=== PATIENT | female | born 1975 | race Caucasian/White ===

== ENCOUNTER 2017-09-06 06:31 | Emergency (ER) | payer OTHER ==
[2017-09-06] MEDS: 0.9 % SODIUM CHLORIDE 1,000 ML IV ONE ×2 (07:00→07:27)
[2017-09-06] MEDS: KETOROLAC TROMETHAMINE 30 MG/1ML VIAL ONE (07:00)
[2017-09-06] MEDS: ONDANSETRON HCL/PF 4 MG/ 2ML VIAL ONE (07:00)
[2017-09-06] MEDS: KETOROLAC TROMETHAMINE 30 MG/1ML VIAL IVP ONE (07:27)
[2017-09-06] MEDS: fentaNYL CITRATE/PF 100 MCG/ 2ML AMP IVP ONE ×2 (07:35→09:25)
[2017-09-06] MEDS: TAMSULOSIN HCL 0.4 MG CAP.ER.24H PO ONE ×2 (07:35→07:46)
[2017-09-06] MEDS: fentaNYL CITRATE/PF 100 MCG/ 2ML AMP ONE (07:46)
--- NOTE | 2017-09-06 08:07 | ED Physician Documentation ---
Female Urogenital Problems - HISTORIAN Historian: patient - HPI Stated Complaint: POSS KIDNEY STONE Chief Complaint: Female Urogenital Problems Onset: other (329) Severity: severe Further Comments: yes (42 year old female patient presents with complaint of right flank which started around 0330. Patient reports having dull back ache yesterday, around 0330 pain became sharp and much worse. Patient reports history of renal calculi when she lived in [place]. Has never been seen by urology.) - ROS CONST: none GI/: nausea. denies: vomiting, diarrhea CVS/RESP: none EYES/ENT: none NEURO/PSYCH: none MS/SKIN/LYMPH: none - PAST HX Past History: none Other History: other (renal calculi - passed) Allergies/Adverse Reactions: Allergies Allergy/AdvReac Type Severity Reaction Status Date / Time No Known Allergies Allergy Verified 09/06/17 07:03 Home Medications: Ambulatory Orders Medication Instructions Recorded NK [NK] 09/06/17 - SOCIAL HX Smoking History: cigarettes - FAMILY HX Family History: denies: none - VITAL SIGNS Vital Signs: Vital Signs Temp Pulse Resp BP Pulse Ox 98.1 F 85 20 156/80 99 09/06/17 06:31 09/06/17 06:31 09/06/17 06:31 09/06/17 06:31 09/06/17 06:31 - REVIEWED ASSESSMENTS Nursing Assessment Reviewed: Yes Vitals Reviewed: Yes Progress - Progress Progress: Patient with continued pain after toradol and fluid. Flomax given in ER. Reviewed CT results with patient, discussed urology consult. Patient states "you pick". 0815 Call to [facility] for urology consult and follow up care. Dr Rogers consulted 0900 Case discussed with Nagi house cleaner, consulted with Dr Rogers, will see patient in his office at 3:30 today. Reviewed discharge instructions with patient, agrees with plan of care, reports pain is increasing. Additional fentanyl given ED Results Lab/Radiology - Radiology Radiology Impressions: HISTORY: 42-year-old female with right abdominal pain, history of kidney stones. COMPARISON: None available. TECHNIQUE: Helical CT images of the abdomen and pelvis were performed without contrast. Sagittal and coronal reformatted images were obtained. FINDINGS: Urinary tract: There are numerous bilateral nonobstructing renal calculi. There is moderate to severe right hydronephrosis and hydroureter secondary to a 7 mm right distal ureteral calculus (image 318, series 2). No left ureteral calculi, hydronephrosis, or hydroureter. No urinary bladder calculi. Miscellaneous: There is patchy air trapping in the lung bases. There is a small sliding hiatal hernia. The noncontrast liver, spleen, pancreas, gallbladder, adrenal glands are unremarkable. No abnormal bowel dilatation, free air, free fluid, or suspicious adenopathy. The appendix is not visualized , and is likely surgically absent. There is an old post-traumatic deformity of the left iliac bone laterally. There is advanced lower lumbar degenerative disc disease. There are thoracolumbar and lumbosacral transitional vertebrae. IMPRESSION: 1. Right distal ureteral 7 mm calculus with associated moderate to severe right hydronephrosis and hydroureter. 2. Numerous bilateral renal nonobstructing calculi. 3. Patchy air trapping in the lung bases may indicate small airways disease or early emphysema. 4. Small sliding hiatal hernia. - Orders Orders: ED Orders Category Date Time Status Place IV Lock 1T Care 09/06/17 06:40 Active RENAL STONE PROTOCOL [CT ABD & PELVIS W/O CON] Stat Exams 09/06/17 Taken 0.9 % Sodium Chloride [Normal Saline] 1,000 ml Med 09/06/17 06:43 Discontinued IV .STK-MED 0.9 % Sodium Chloride [Normal Saline] 1,000 ml Med 09/06/17 06:45 Discontinued IV Q1H Ketorolac Tromethamine [Toradol] Med 09/06/17 06:43 Discontinued 30 mg .ROUTE .STK-MED ONE Ketorolac Tromethamine [Toradol] Med 09/06/17 06:45 Discontinued 30 mg IVP NOW ONE Ondansetron HCl/Pf [Zofran 4 mg/2 ml] Med 09/06/17 06:47 Discontinued 4 mg .ROUTE .STK-MED ONE Tamsulosin HCl [Flomax] Med 09/06/17 07:31 Discontinued 0.4 mg PO .STK-MED ONE Tamsulosin HCl [Flomax] Med 09/06/17 07:29 Discontinued 0.4 mg PO NOW ONE fentaNYL CITRATE/PF [Duragesic] Med 09/06/17 07:31 Discontinued 100 mcg .ROUTE .STK-MED ONE fentaNYL CITRATE/PF [Duragesic] Med 09/06/17 07:30 Discontinued 50 mcg IVP NOW ONE Female Urogenital Problems - EXAM General Appearance: moderate distress EENT: eye inspection normal, DANIEL Respiratory: no resp. distress, breath sounds nml CVS: reg rate & rhythm, heart sounds normal, equal pulses, no murmur, no gallop , PMI nml, no JVD, no friction rub, 24 Abdomen: soft, non-tender, no organomegaly, no distention, nml bowel sounds Back: CVA tenderness (right) Skin: color nml, no rash, warm,dry Extremities: non-tender, normal range of motion, no evidence of injury, no edema , J, CHIEF DEPUTY CLERK/BAILIFF Neuro: oriented X3, CN's nml as tested, motor nml, sensation nml, mood/affect nml Discharge Clincal Impression: Renal calculus Referrals: Natacha Gross PRN [Primary Care Provider] - 2 Days Additional Instructions: Appointment today at [facility] [address] Rogers 3:30pm [address] [place] [address] Toll Free: [phone] Rest Hydrate - no caffeine beverages Condition: Stable Disposition: 01 HOME, SELF-CARE Decision to Admit: NO Decision Time: 09:19
[2017-09-06 09:27] LABS: APPEARANCE,URINE CLOUDY (CLEAR); COLOR,URINE AMBER (YELLOW)
[2017-09-06 09:28] LABS: OCCULT BLOOD,URINE 3+ (NEGATIVE); PH URINE 6.5 (5.0 - 8.0); UROBILINOGEN URINE 0.2 Eu (0.2-1.0)
[2017-09-06 09:38] VITALS: BP 148/86
--- NOTE | 2017-09-06 09:47 | Diagnostic Imaging Report ---
ARJUN BOWMAN (SATYA) - ER [facility] [address] [facility] [address] [place], [place]. [address] Report Submission Date: Sep 06, 2017 7:24:28 AM CHANGE COORDINATOR Patient Study Name: THOMAS ROJAS Date: Sep 06, 2017 7:05:20 AM CHANGE COORDINATOR Modality Type: CT\SR Gender: F Description: CT ABD & PELVIS W/O CO : 75 Institution: [facility] Physician: ARJUN BOWMAN) - ER HISTORY: 42-year-old female with right abdominal pain, history of kidney stones. COMPARISON: None available. TECHNIQUE: Helical CT images of the abdomen and pelvis were performed without contrast. Sagittal and coronal reformatted images were obtained. FINDINGS: Urinary tract: There are numerous bilateral nonobstructing renal calculi. There is moderate to severe right hydronephrosis and hydroureter secondary to a 7 mm right distal ureteral calculus (image 318, series 2). No left ureteral calculi, hydronephrosis, or hydroureter. No urinary bladder calculi. Miscellaneous: There is patchy air trapping in the lung bases. There is a small sliding hiatal hernia. The noncontrast liver, spleen, pancreas, gallbladder, adrenal glands are unremarkable. No abnormal bowel dilatation, free air, free fluid, or suspicious adenopathy. The appendix is not visualized , and is likely surgically absent. There is an old post-traumatic deformity of the left iliac bone laterally. There is advanced lower lumbar degenerative disc disease. There are thoracolumbar and lumbosacral transitional vertebrae. IMPRESSION: 1. Right distal ureteral 7 mm calculus with associated moderate to severe right hydronephrosis and hydroureter. 2. Numerous bilateral renal nonobstructing calculi. 3. Patchy air trapping in the lung bases may indicate small airways disease or early emphysema. 4. Small sliding hiatal hernia. Electronically signed on Sep 06, 2017 7:24:28 AM CHANGE COORDINATOR by: Fito PARRA
== END 2017-09-06 09:33 | disposition home or self-care (01) ==
LOC: ED 06:31
DX: N20.0 Calculus of kidney (principal)
CPT/HCPCS: 74176; 81002; 96365; 96375; 96376; 99283; 99284; J1885; J2405; J3010; J7030; S1016

== ENCOUNTER 2017-10-12 16:24 | Outpatient (CLI) | payer OTHER ==
--- NOTE | 2017-10-12 19:27 | Diagnostic Imaging Report ---
JORDEN VALENTE (SATYA) - OP [facility] [address] [facility].[address] [address] Report Submission Date: Oct 12, 2017 4:59:15 PM HOME DEPOT REP Patient Study Name: THOMAS ROJAS Date: Oct 12, 2017 4:30:45 PM HOME DEPOT REP Modality Type: DX Gender: F Description: UPPER EXTREMITY : 75 Institution: [facility] Physician: JORDEN VALENTE (SATYA) - OP Examination: Plain film right hand History: FALL WITH PAIN, SWELLING AND LIMITED USE X 2 DAYS (Hx) Comparison exams: None available Findings: 3 views the right hand demonstrate normal cortical margins. No fracture. No dislocation. Ulnar minus variant. No soft tissue abnormality. Impression: No acute appearing osseous abnormality. Electronically signed on Oct 12, 2017 4:59:15 PM HOME DEPOT REP by: Wilfred PARRA
--- NOTE | 2017-10-12 19:27 | Diagnostic Imaging Report ---
JORDEN VALENTE (SATYA) - OP [facility] [address] [facility].[address] [address] Report Submission Date: Oct 12, 2017 5:02:40 PM AUTO MECHANIC SUPERVISOR Patient Study Name: THOMAS ROJAS Date: Oct 12, 2017 4:34:11 PM AUTO MECHANIC SUPERVISOR Modality Type: DX Gender: F Description: WRIST : 75 Institution: [facility] Physician: JORDEN VALENTE (SATYA) - OP Examination: Plain film right wrist History: FALL WITH PAIN, SWELLING AND LIMITED USE X 2 DAYS (Hx) Comparison exams: None available Findings: 3 views the right wrist demonstrate normal cortical margins. No fracture. No dislocation. Ulnar minus variant No soft tissue abnormality. Impression: No acute osseous abnormality. Electronically signed on Oct 12, 2017 5:02:40 PM AUTO MECHANIC SUPERVISOR by: Wilfred PARRA
--- NOTE | 2017-10-12 19:30 | Diagnostic Imaging Report ---
JORDEN VALENTE (POLITICAL WORKER) - OP [facility] [address] [facility].[address] [address] Report Submission Date: Oct 12, 2017 5:00:29 PM CD REACTOR OPERATOR HEAD Patient Study Name: THOMAS ROJAS Date: Oct 12, 2017 4:39:23 PM CD REACTOR OPERATOR HEAD Modality Type: DX Gender: F Description: UPPER EXTREMITY : 75 Institution: [facility] Physician: JORDEN VALENTE (SATYA) - OP Examination: Plain film right forearm History: FALL WITH PAIN, SWELLING AND LIMITED USE X 2 DAYS (Hx) Comparison exams: None available Findings: 2 views of the right radius and ulna demonstrates normal cortical margins. No evidence for fracture line. Ulnar minus variant. No soft tissue abnormality. Impression: No acute osseous abnormality. Electronically signed on Oct 12, 2017 5:00:29 PM CD REACTOR OPERATOR HEAD by: Wilfred PARRA
== END 2017-10-12 16:25 ==
LOC: RAD 16:24
PROVIDERS: ATTEND Nurse Practitioner Family
DX: W19.XXXA Unspecified fall, initial encounter (principal); Y99.9 Unspecified external cause status; M79.641 Pain in right hand; M25.531 Pain in right wrist
CPT/HCPCS: 73090; 73110; 73130

== ENCOUNTER 2018-02-14 00:13 | Emergency (ER) | payer OTHER ==
--- NOTE | 2018-02-14 00:47 | ED Physician Documentation ---
General Adult - HISTORIAN Historian: patient - HPI Stated Complaint: R flank pain Chief Complaint: General Adult Onset: hours Timing: still present Severity: moderate Further Comments: yes (Pt is a 42 yo female with R flank pain and hx multiple episodes kidney stones. Pt was tx'd for a kidney stone with lithotripsy 6 weeks ago. She was seen here in August 2017, also for kidney stone. Pt has had [address] scans this year and multiple abd CT's previously. Pt has n/v, and c/o R flank pain radiating to her groin. Pt is very irritble and cannot find a comfortable position to be in. Sx are identical to sx of her previous kidney stones.) - ROS CONST: other (malaise) EYES/ENT: none CVS/RESP: none GI/: abdominal pain (R flank pain radiating to groin), vomiting, nausea MS/SKIN/LYMPH: none - PAST HX Past History: kidney stones Allergies/Adverse Reactions: Allergies Allergy/AdvReac Type Severity Reaction Status Date / Time No Known Allergies Allergy Verified 09/06/17 07:03 Home Medications: Ambulatory Orders Medication Instructions Recorded NK [NK] 09/06/17 - SOCIAL HX Smoking History: cigarettes - FAMILY HX Family History: No - VITAL SIGNS Vital Signs: Vital Signs Temp Pulse Resp BP Pulse Ox 148/86 09/06/17 09:33 - REVIEWED ASSESSMENTS Nursing Assessment Reviewed: Yes Vitals Reviewed: Yes Progress - Progress Progress: NS 1 L IVF Toradol 30 mg IV Zofran 4 mg IV Given pt hx of mult episodes kidney stones, and number of recent CT scans, will tx presumptively for kidney stone. Pt will return to ER if sx do not resolved. Pt voided 2 small crystals in ER and sx were improved at discharge. Rx Flomax 0.4 mg. Take one by mouth once daily for 5 days or until kidney stone passes. (1st dose in ER.) Rx Percocet (5/325). Take one or two by mouth every 4 to 6 hours as needed for moderate to severe pain. Rx Zofran ODT 4 mg. Take one by mouth every 8 hours as needed for nausea/ vomiting. Rx Keflex 500 mg. Take one every 8 hours for 7 days. (1st dose in ER.) General Adult Physical Exam - PHYSICAL EXAM GENERAL APPEARANCE: moderate distress EENT: pharynx normal NECK: normal inspection, supple RESPIRATORY: no resp distress, chest non-tender, breath sounds normal CVS: reg rate & rhythm, heart sounds normal ABDOMEN: soft, normal bowel sounds, tenderness (R abd/flank) BACK: normal inspection, CVA tenderness (R) SKIN: warm/dry, normal color EXTREMITIES: non-tender, normal range of motion, no evidence of injury, no edema NEURO: oriented X3, motor nml, sensation nml Discharge Clincal Impression: Kidney Stone Referrals: Natacha Gross PRN [Primary Care Provider] - Condition: Stable Disposition: 01 HOME, SELF-CARE Decision to Admit: NO Decision Time: 03:00
[2018-02-14] MEDS ORDERED: ONDANSETRON HCL/PF 4 MG/ 2ML VIAL IVP ONE (00:50)
[2018-02-14] MEDS ORDERED: KETOROLAC TROMETHAMINE 30 MG/1ML VIAL IVP ONE (00:50)
[2018-02-14] MEDS ORDERED: 0.9 % SODIUM CHLORIDE 1,000 ML IV ONE (00:54)
[2018-02-14] MEDS: ONDANSETRON HCL/PF 4 MG/ 2ML VIAL ONE (00:56)
[2018-02-14] MEDS: KETOROLAC TROMETHAMINE 30 MG/1ML VIAL ONE (00:56)
[2018-02-14 01:01] LABS: BASOPHILS % 0.5 (0.0-1.5); MEAN CORPUSCULAR HEMOGLOBIN 27.7 pg (28.0-34.0); MEAN CORPUSCULAR VOLUME 84.3 fl (80.0-100.0); MONOCYTES % 4.3 % (0.0-11.0); NEUTROPHILS # 10.2 # k/uL (1.4-7.7)
[2018-02-14 01:08] LABS: eGFR (African) > 60; eGFR (Non-African) > 60
[2018-02-14] MEDS: 0.9 % SODIUM CHLORIDE 1,000 ML IV ONE (01:32)
[2018-02-14] MEDS ORDERED: TAMSULOSIN HCL 0.4 MG CAP.ER.24H PO ONE (02:18)
[2018-02-14] MEDS ORDERED: CEPHALEXIN 250 MG CAPSULE PO ONE (02:19)
[2018-02-14] MEDS ORDERED: ONDANSETRON HCL 4 MG TAB.RAPDIS PO ONE (02:20)
[2018-02-14] MEDS ORDERED: oxyCODONE/ACETAMINOPHEN 5/325 TABLET PO ONE (02:32)
[2018-02-14 02:59] VITALS: BP 124/80
[2018-02-14] MEDS ORDERED: oxyCODONE/ACETAMINOPHEN 5/325 TABLET PO SCH (03:00)
[2018-02-14 09:02] LABS: APPEARANCE,URINE CLEAR (CLEAR); COLOR,URINE YELLOW (YELLOW); OCCULT BLOOD,URINE 2+ (NEGATIVE)
== END 2018-02-14 02:59 | disposition home or self-care (01) ==
LOC: ED 00:13
DX: N20.0 Calculus of kidney (principal)
CPT/HCPCS: 80053; 81002; 83690; 85025; A9270; J1885; J2405; J7030; 96365; 96375; 99284; S1016

== ENCOUNTER 2019-01-16 10:55 | Inpatient (IN) | payer OTHER ==
[2019-01-16] MEDS ORDERED: NORMAL SALINE 1,000 ML IV.SOLN IV ONE ×2 (11:24→13:34)
[2019-01-16] MEDS ORDERED: cefTRIAXone SODIUM 1 GM INJ ONE (12:39)
[2019-01-16] MEDS ORDERED: 0.9 % SODIUM CHLORIDE 50 ML IV.SOLN IV ONE (12:39)
[2019-01-16] MEDS ORDERED: IPRATROPIUM/ALBUTEROL SULFATE 3 ML AMPUL.NEB NEB ONE ×3 (13:05→20:48)
[2019-01-16] MEDS ORDERED: 0.9 % SODIUM CHLORIDE 250 ML IV.SOLN IV ONE (13:34)
[2019-01-16] MEDS ORDERED: AZITHROMYCIN 500 MG VIAL IV ONE (13:34)
[2019-01-16] MEDS ORDERED: ENOXAPARIN SODIUM 40 MG/0.4 ML DISP.SYRIN SQ ONE (17:53)
[2019-01-16] MEDS ORDERED: PANTOPRAZOLE SODIUM 40 MG TABLET.DR ONE (17:53)
[2019-01-16] MEDS ORDERED: KETOROLAC TROMETHAMINE 30 MG/1ML VIAL ONE (19:37)
[2019-01-16] MEDS ORDERED: ACETAMINOPHEN 325 MG TABLET ONE ×2 (21:21)
[2019-01-17] MEDS ORDERED: IPRATROPIUM/ALBUTEROL SULFATE 3 ML AMPUL.NEB NEB ONE ×3 (00:44→12:19)
[2019-01-17] MEDS ORDERED: NORMAL SALINE 1,000 ML IV.SOLN IV ONE ×3 (02:11→19:59)
[2019-01-17] MEDS ORDERED: KETOROLAC TROMETHAMINE 30 MG/1ML VIAL ONE ×2 (02:14→22:48)
[2019-01-17] MEDS ORDERED: PANTOPRAZOLE SODIUM 40 MG TABLET.DR ONE ×2 (06:00→17:43)
[2019-01-17] MEDS ORDERED: ACETAMINOPHEN 325 MG TABLET ONE ×4 (08:28→12:20)
[2019-01-17] MEDS ORDERED: TAMSULOSIN HCL 0.4 MG CAP.ER.24H PO ONE (08:28)
[2019-01-17] MEDS ORDERED: DOCUSATE SODIUM 100 MG CAPSULE PO ONE ×2 (08:28→22:12)
[2019-01-17] MEDS ORDERED: diphenhydrAMINE HCL 25 MG TABLET PO ONE ×2 (08:29→12:20)
[2019-01-17] MEDS ORDERED: POLYETHYLENE GLYCOL 3350 17 GM POWD.PACK ONE (08:29)
[2019-01-17] MEDS ORDERED: LOSARTAN POTASSIUM 50 MG TABLET PO ONE (08:29)
[2019-01-17] MEDS ORDERED: hydroCHLOROthiazide 25 MG TABLET PO ONE (08:37)
[2019-01-17] MEDS ORDERED: POTASSIUM CHLORIDE 20 MEQ TABLET.ER ONE ×3 (08:52)
[2019-01-17] MEDS ORDERED: cefTRIAXone SODIUM 1 GM INJ ONE (15:08)
[2019-01-17] MEDS ORDERED: 0.9 % SODIUM CHLORIDE 250 ML IV.SOLN IV ONE (15:49)
[2019-01-17] MEDS ORDERED: AZITHROMYCIN 500 MG VIAL IV ONE (15:49)
[2019-01-18] MEDS ORDERED: FUROSEMIDE 20 MG/2 ML VIAL ONE (07:31)
[2019-01-18] MEDS ORDERED: TAMSULOSIN HCL 0.4 MG CAP.ER.24H PO ONE (07:33)
[2019-01-18] MEDS ORDERED: hydroCHLOROthiazide 25 MG TABLET PO ONE (07:33)
[2019-01-18] MEDS ORDERED: LOSARTAN POTASSIUM 50 MG TABLET PO ONE (07:33)
[2019-01-18] MEDS ORDERED: DOCUSATE SODIUM 100 MG CAPSULE PO ONE (07:33)
[2019-01-18] MEDS ORDERED: POTASSIUM CHLORIDE 20 MEQ TABLET.ER ONE (07:34)
[2019-01-18] MEDS ORDERED: cefTRIAXone SODIUM 1 GM INJ ONE (12:31)
[2019-01-18] MEDS ORDERED: 0.9 % SODIUM CHLORIDE 100 ML IV.SOLN IV ONE (12:31)
[2019-01-18] MEDS ORDERED: POLYETHYLENE GLYCOL 3350 17 GM POWD.PACK ONE (13:25)
[2019-01-18] MEDS ORDERED: 0.9 % SODIUM CHLORIDE 250 ML IV.SOLN IV ONE (13:25)
[2019-01-18] MEDS ORDERED: AZITHROMYCIN 500 MG VIAL IV ONE (13:25)
[2019-01-28 08:05] LABS: APPEARANCE,URINE CLEAR (CLEAR); COLOR,URINE YELLOW (YELLOW); OCCULT BLOOD,URINE 2+ (NEGATIVE); PH URINE 8.5 (5.0 - 8.0); UROBILINOGEN URINE 0.2 Eu (0.2-1.0)
[2019-01-28 08:11] LABS: eGFR (Non-African) > 60
[2019-01-28 08:12] LABS: BASOPHILS % 0.6 % (0.0-1.5); NEUTROPHILS # 13.7 # k/uL (1.4-7.7)
[2019-01-29 17:34] LABS: eGFR (Non-African) > 60
[2019-01-29 17:35] LABS: BASOPHILS % 0.4 % (0.0-1.5); NEUTROPHILS # 8.9 # k/uL (1.4-7.7)
[2019-01-29 18:14] LABS: BASOPHILS % 0.5 % (0.0-1.5); NEUTROPHILS # 8.9 # k/uL (1.4-7.7)
[2019-01-29 19:14] LABS: BASOPHILS % 0.4 % (0.0-1.5); NEUTROPHILS # 7.5 # k/uL (1.4-7.7); eGFR (Non-African) > 60
--- NOTE | 2019-03-07 15:57 | Diagnostic Imaging Report ---
MARY PATRICIA ED [facility] [address] [facility].[address] [address] Report Submission Date: Jan 16, 2019 4:15:49 PM CDT Patient Study Name: THOMAS ROJAS Date: Jan 16, 2019 2:50:22 PM CDT Modality Type: US Gender: F Description: US BLEV : 75 Institution: [facility] Physician: MARY PATRICIA ED BILATERAL VENOUS DUPLEX History: Bilateral leg tenderness status post lithotripsy Duplex and color flow imaging was performed through the bilateral lower extremity femoral-popliteal venous system revealing normal compressibility and normal augmentation response throughout. No evidence for deep venous thrombosis. IMPRESSION: NORMAL BILATERAL LOWER EXTREMITY VENOUS DUPLEX STUDY. NO EVIDENCE FOR DEEP VENOUS THROMBOSIS. Electronically signed on Jan 16, 2019 4:15:49 PM CDT by: Jadyn PARRA
--- NOTE | 2019-03-07 16:03 | Diagnostic Imaging Report ---
MARY PATRICIA ED [facility] [address] [facility] [address] [place], [place]. [address] Report Submission Date: Jan 16, 2019 12:31:33 PM CDT Patient Study Name: THOMAS ROJAS Date: Jan 16, 2019 12:03:23 PM CDT Modality Type: CT\SR Gender: F Description: CT ABD/PELVIS W/CONT : 75 Institution: [facility] Physician: MARY PATRICIA ED Exam: CT abdomen and pelvis with contrast. History: Pain. Axial images through the abdomen and pelvis after IV infusion of 93 cc Omnipaque is submitted along with sagittal and coronal reformatted images. Linear infiltrates in the lower lung dee bilaterally are noted. Right pleural effusion with compressive atelectasis in the right lower lung field is noted. No free intraperitoneal air is identified. The gallbladder is distended without stones. The liver, spleen and pancreas appear normal in attenuation and enhancement without space-occupying lesion. The adrenal glands are normal configuration. The abdominal aorta is of normal caliber. No periaortic lymphadenopathy is identified. A large high Attenuation fluid collection surrounds the right kidney which may represent a subcapsular hematoma. Surrounding inflammatory changes in the perinephric fat is also noted. Punctate calcifications in the renal collecting systems bilaterally are noted. No hydronephrosis or hydroureter is are identified. The urinary bladder is distended without trabeculation. The uterus is deviated to the left of midline. Streaking inflammatory changes in the right adnexa is also noted. Small bowel is of normal caliber. Air and stool seen throughout the large intestine. Degenerate changes in the lower lumbar spine are noted. Impression: Large subcapsular hematoma surrounds the right kidney. Numerous nonobstructing renal stones noted bilaterally. Mild perinephric fat streaking adjacent to the right kidney could indicate an underlying inflammatory process. This streaky inflammatory process appears to extend inferiorly into the right adnexa which may also represent inflammatory process. Nonspecific bowel gas pattern. Electronically signed on Jan 16, 2019 12:31:33 PM CDT by: Wilmer PARRA
--- NOTE | 2019-03-07 16:13 | Diagnostic Imaging Report ---
MARY PATRICIA ED [facility] [address] [facility] [address] [place] [address]. [id number] Report Submission Date: Jan 16, 2019 12:24:08 PM CDT Patient Study Name: THOMAS ROJAS Date: Jan 16, 2019 11:50:24 AM CDT Modality Type: DX Gender: F Description: CHEST 1VIEW : 75 Institution: [facility] Physician: MARY PATRICIA ED Exam: AP chest. History: Chest pain. No previous studies are available for comparison. Lung dee are well aerated. Right basilar infiltrates are noted. No pleural effusions are seen. Heart and mediastinal contour are normal. Impression: Right basilar infiltrate. Electronically signed on Jan 16, 2019 12:24:08 PM CDT by: Wilmer PARRA
== END 2019-01-18 16:21 | disposition home or self-care (01) | DRG 919 ==
LOC: ED 10:55 → UNDOADMIN 13:55 → SOUTH 13:55 → ICF 13:55 → UNDODISIN 01-18 16:21
PROVIDERS: ADMIT Family Medicine; ATTEND Family Medicine
PROC: 30233N1 Transfusion of Nonautologous Red Blood Cells into Peripheral Vein, Percutaneous Approach (ICD-10-PCS; principal; 2019-01-18)
DX: N99.840 Postprocedural hematoma of a genitourinary system organ or structure following a genitourinary system procedure (principal); J18.1 Lobar pneumonia, unspecified organism; I10 Essential (primary) hypertension; E89.0 Postprocedural hypothyroidism; R09.02 Hypoxemia; D50.9 Iron deficiency anemia, unspecified; F17.210 Nicotine dependence, cigarettes, uncomplicated; E86.0 Dehydration; E89.2 Postprocedural hypoparathyroidism; N20.0 Calculus of kidney; Z86.018 Personal history of other benign neoplasm; Z83.3 Family history of diabetes mellitus; Z80.0 Family history of malignant neoplasm of digestive organs; Z82.49 Family history of ischemic heart disease and other diseases of the circulatory system; Y83.6 Removal of other organ (partial) (total) as the cause of abnormal reaction of the patient, or of later complication, without mention of misadventure at the time of the procedure; Y84.8 Other medical procedures as the cause of abnormal reaction of the patient, or of later complication, without mention of misadventure at the time of the procedure
CPT/HCPCS: 36415; 71045; 74177; 80048; 80053; 81002; 82550; 82553; 82728; 83540; 83550; 84443; 84484; 85025; 86885; 86900; 86920; 87040; 87086; 93005; 93970; A9270; J0456; J0696; J1650; J1885; J1940; J7030; J7050; Q0163; 99221; P9040; Q9967; S1016

== ENCOUNTER 2019-01-19 19:50 | Emergency (ER) | payer OTHER ==
[2019-01-19] MEDS ORDERED: NORMAL SALINE 1,000 ML IV.SOLN IV ONE (20:08)
[2019-01-29 18:17] LABS: eGFR (Non-African) > 60
[2019-01-29 18:19] LABS: BASOPHILS % 0.5 % (0.0-1.5); NEUTROPHILS # 11.9 # k/uL (1.4-7.7)
== END 2019-01-19 21:45 ==
LOC: ED 19:50
DX: R10.11 Right upper quadrant pain (principal)
CPT/HCPCS: 80053; 85025; 99282; J7030; S1016